=== PATIENT | female | born 1985 | race Caucasian/White ===

== ENCOUNTER 2023-11-29 15:58 | Emergency (ER) | payer MEDICAID ==
[~2023-11-29] VITALS: Ht 157.5 cm; Wt 56.7 kg
[2023-11-29 16:18] VITALS: BP_SYST 115; PULSE 85; RESP 18; TEMP 98.3; O2SAT 98
[2023-11-29] MEDS ORDERED: BUPR1FIL3 SL (17:35)
[2023-11-29 17:49] VITALS: BP_SYST 115; PULSE 85; RESP 18; TEMP 98.3; O2SAT 98
== END 2023-11-29 17:47 | disposition home or self-care (01) ==
LOC: SED 15:58
DX: H11.31 Conjunctival hemorrhage, right eye (principal); F11.10 Opioid abuse, uncomplicated; J45.909 Unspecified asthma, uncomplicated
CPT/HCPCS: 99283